=== PATIENT | female | born 1990 ===

== ENCOUNTER 2021-03-10 08:52 | Emergency (ER) | payer SELFPAY ==
[2021-03-10] MEDS ORDERED: Sodium Chloride 0.9% 10 ML Syringe FLUSH PRN (09:05)
[2021-03-10] MEDS ORDERED: Ondansetron 4 MG/2 ML SDV IV ONE (09:06)
[2021-03-10] MEDS ORDERED: HYDROmorphone 0.5 MG/0.5 ML Syringe IVPUSH ONE (09:06)
[2021-03-10 09:55] LABS: ANION GAP 7.7 mEq/L (7-13); CHLORIDE,CL 102 mmol/L (98-107); SODIUM,NA 134 mmol/L (136-145)
[2021-03-10] MEDS ORDERED: metroNIDAZOLE/Normal Saline 500 MG in Premix Bag 100 BAG IV ONE (09:55)
[2021-03-12 12:47] LABS: C.TRACHOMATIS BY TMA Negative (Negative); N.GONORRHOEAE BY TMA Negative (Negative)
== END 2021-03-10 11:09 | disposition home or self-care (01) ==
LOC: DL.ED 08:52
DX: K80.20 Calculus of gallbladder without cholecystitis without obstruction (principal); K80.50 Calculus of bile duct without cholangitis or cholecystitis without obstruction; N76.0 Acute vaginitis; B96.89 Other specified bacterial agents as the cause of diseases classified elsewhere; E88.09 Other disorders of plasma-protein metabolism, not elsewhere classified
CPT/HCPCS: 36415; 76705; 80053; 81001; 81025; 82150; 83690; 85025; 87491; 87563; 87591; 96365; 96375; 99284-25; J1170; J2405; J3490

== ENCOUNTER 2021-03-24 17:28 | Emergency (ER) | payer OTHER ==
[2021-03-24] MEDS ORDERED: Ondansetron 4 MG/2 ML SDV IVPUSH ONE (18:08)
[2021-03-24] MEDS ORDERED: Sodium Chloride 0.9% 1,000 ML IV ONE (18:13)
[2021-03-24 18:45] LABS: ANION GAP 8.3 mEq/L (7-13); CHLORIDE,CL 104 mmol/L (98-107); SODIUM,NA 139 mmol/L (136-145)
[2021-03-24] MEDS ORDERED: HYDROmorphone 0.5 MG/0.5 ML Syringe IVPUSH ONE (19:26)
== END 2021-03-24 19:52 | disposition home or self-care (01) ==
LOC: DL.ED 17:28
DX: K80.20 Calculus of gallbladder without cholecystitis without obstruction (principal)
CPT/HCPCS: 36415; 80053; 82150; 83690; 85025; 96374; 96375; 99284-25; J1170; J2405; J7030